=== PATIENT | male | born 1955 | race Hispanic/Latino ===

== ENCOUNTER 2024-12-13 10:02 | Observation (INO) | payer OTHER ==
[2024-12-11 12:10] LABS: IMMATURE GRANULOCYTE ABSOLUTE 0.03 K/uL (0-1); NUCLEATED RED BLOOD CELLS 0.0 % (0.0-0.19); PLATELET COUNT (AUTO) 240 K/uL (130-400); RED BLOOD CELL COUNT(AUTO) 4.22 MIL/uL (4.50-6.20); RED CELL DISTRIBUTION WIDTH 13.8 % (11.0-15.5); WHITE BLOOD COUNT (AUTO) 7.5 K/uL (4.8-10.8)
[2024-12-11 12:18] LABS: INR 1.06 (0.85-1.15)
[2024-12-11 12:21] LABS: CREATININE 0.7 mg/dL (0.5-1.3); GLOMERULAR FILTR. RATE CALC 99.0 mL/min (>90); GLUCOSE,RANDOM 88.0 mg/dL (70-105); SODIUM SERUM 136.0 mmol/L (136-145); UREA NITROGEN, BLOOD 17.0 mg/dL (7-18)
[2024-12-11 12:28] VITALS: BP 128/81; PULSE 76; RESP 18; TEMP 97.7
--- NOTE | 2024-12-11 12:50 | EKG ---
[facility] Test Date: 2024-12-11 Test Time: 11:55:13 Pat Name: TAWNYA VALLE Department: [facility] Room: Gender: M Outcomes Analyst: [id number] : 1955 Requested By: ALBERTA HAYES Order Number: [id number] Reading MD: Alberta Montoya Measurements Intervals [place] Rate: 67 P: 61 LA: 180 QRS: -8 QRSD: 99 T: 35 QT: 380 QTc: 402 Interpretive Statements Sinus rhythm No previous ECG available for comparison Electronically Signed On 12-11-2024 18:06:56 CDT by Alberta Montoya Please click the below link to view image of tracing.
[2024-12-13] VITALS (24 sets, daily range): BP systolic 130–150; BP diastolic 58–90; PULSE 70–100; RESP 14–20; TEMP 97.2–97.8; O2SAT 94
[~2024-12-13] VITALS: Ht 180.3 cm; Wt 80.3 kg
[2024-12-13] MEDS: LACTATED RINGERS 1000ML 1,000 ML IV ONE (09:40)
[~2024-12-13 10:02] MED LIST: ALEN70TA80 PO; BUDE10.7 IH; CYAN-35 PO; HYDR-4068 PO; PANT40TA54 PO; PREG25CA19 PO; TAMS-55 PO
[2024-12-13] MEDS ORDERED: LIDOCAINE HCL MPF 1% 5ML VIAL ONE (10:57)
[2024-12-13] MEDS ORDERED: GLYCOPYRROLATE 0.2 MG/ML 5 ML VIAL ONE (10:57)
[2024-12-13] MEDS ORDERED: MIDAZOLAM HCL 1 MG/ML 2ML VIAL ONE (10:58)
[2024-12-13] MEDS ORDERED: NEOSTIGMINE METHYLSULFATE 1MG/ML IV ONE (10:58)
[2024-12-13] MEDS ORDERED: PROMETHAZINE HCL 25 MG/ML 1ML AMPULE IM PRN (11:00)
[2024-12-13] MEDS ORDERED: APIX2.5T PO (11:26)
[2024-12-13] MEDS: SUGAMMADEX SODIUM 200 MG/2 ML VIAL IV ONE (12:38)
--- NOTE | 2024-12-13 12:49 | OP ---
Operative Note: DATE OF PROCEDURE: 12/13/24 SURGEON: ALBERTA HAYES MD POWER TOOL REPAIR TECHNICIAN: Washington Hayes MD p.a. C ANESTHESIA: General and local ANESTHESIOLOGIST/REGULATORY AFFAIRS INTERN: [facility] anesthesia team PREOPERATIVE DIAGNOSIS: Symptomatic paraesophageal hiatal hernia with the incarcerated proximal stomach POSTOPERATIVE DIAGNOSIS: As above SYNOPSIS: Hiatal hernia repair with mesh reinforcement and partial anterior fundoplication performed without immediate complication PROCEDURE: 1. Robotic assisted paraesophageal hiatal hernia repair with mesh reinforcement 2. Partial anterior Nikhil style fundoplication 3. EGD ESTIMATED BLOOD LOSS: Minimal, less than 30 cc INDICATIONS: As above DESCRIPTION OF PROCEDURE: After standard precautions and preparations were undertaken a Veress needle and optical trocar were used to enter the abdominal cavity. All other instruments were placed under direct vision. The robotic system was docked in the standard fashion. We began our dissection by opening pars flaccida identifying the right forrest of the diaphragm. From there we are able to enter into the mediastinum to enter the avascular plane. We carried this dissection circumferentially to free up the entire proximal stomach which was incarcerated in the paraesophageal hernia sac. After dissection was complete the GE junction was resting well below the hiatus without any tension. This was verified by use of the EGD scope. We began suturing the right and left crura back in reapproximation starting at the crossing fibers in the retroesophageal space. We worked our way upwards towards the posterior esophageal wall. Care was taken not to over tighten. We reinforced this with a mesh overlay. The mesh was cut in a horseshoe fashion and sutured in place. Due to the patient's esophageal dysmotility we had concerns about a full circumferential fundoplication. We mobilize the fundus and performed a partial anterior fundoplication. We 1st sutured the angle of his back to an acute angle to aid in anti-reflux physiology. Then we pulled the loose anterior fundus over the distal esophagus and GE junction for to create an anterior partial fundoplication. We sutured this in place. The EGD was used to verify the anatomy and all the anatomy was appropriate. All instrument counts were verified as correct prior to ending the case including needles and sponges. The patient was hemostatic. ALBERTA HAYES MD Dec 13, 2024 12:48
[2024-12-13] MEDS ORDERED: PROCHLORPERAZINE 10MG/2ML INJ IV PRN (13:00)
--- NOTE | 2024-12-13 13:03 | PN ---
GENERAL SURGERY PROGRESS NOTE Date/Time Patient Seen: [12/13/2024 at 1:00 p.m. ] Problem List: [ ] Interval History: [Postop day 0. Pain tolerable with PRN medication. ] Current Medications Medications (Trade) Dose Ordered Sig/Ab Route Start Time Stop Time Status Last Admin Dose Admin Enoxaparin Sodium (Lovenox) 30 mg Q12H SQ 12/13/24 13:00 01/12/25 12:59 UNV Famotidine (Pepcid 20mg Vial) 20 mg BID IV 12/13/24 21:00 01/12/25 20:59 UNV Lactated Ringer's 1,000 ml @ 150 mls/hr Q6H40M IV 12/13/24 13:00 01/12/25 12:59 UNV Physical Examination: GENERAL: [No acute distress.] ABD: [Incisions clean, dry and intact, Dermabond in place Vital Signs (last 8hr) Date Time Temp Pulse Resp B/P (MAP) Pulse Ox O2 Delivery O2 Flow Rate FiO2 12/13/24 12:45 97.3 92 15 146/68 96 Nonrebreathing Mask 10.0 100 12/13/24 10:20 97.5 70 14 131/76 97 Room Air 21 Laboratory: [ ] Diagnostics / Radiology: [Copy/Paste Echos/Imaging Report here] Impression and Plan: [ Plan is for discharge home in the next day or two as long as patient tolerating p.o., ambulatory and pain under control. Discussed with patient and family. They understand and agree.] HERMINIA HAYES PAC Dec 13, 2024 13:03
--- NOTE | 2024-12-13 14:50 | NUR ---
PT arrived on unit via stretcher. A&Ox4 able to make needs known resp =& unlabored bilat. abdomen soft, tender and round, hypoactive bowel sounds x4 quads. educated pt on safety and hospital environment. PT verbally acknowledged understanding. Bed @ lowest position call light in reach.
[2024-12-13] MEDS: FAMOTIDINE 20MG VIAL IV SCH (19:42)
[2024-12-13] MEDS: HYDROcod/acetaMINOPHEN 7.5/325 MG 15 ML UDCUP PO PRN (19:45)
[2024-12-14] MEDS: ENOXAPARIN SODIUM 30 MG/0.3 ML SQ SCH (03:36)
[2024-12-14 03:44] VITALS: BP 138/74; PULSE 66; RESP 20; TEMP 98.7
[2024-12-14] MEDS: LACTATED RINGERS 1000ML 1,000 ML IV SCH (06:45)
[2024-12-14 08:12] VITALS: BP 150/78; PULSE 66; RESP 18; TEMP 97.5
[2024-12-14 08:30] VITALS: O2SAT 94
--- NOTE | 2024-12-14 10:09 | PN ---
GENERAL SURGERY PROGRESS NOTE Date/Time Patient Seen: [ ] Problem List: [Symptomatic Paraesophageal hiatal hernia with incarcerated proximal stomach Hyperlipidemia GERD, BPH, gastritis, PAD COPD ] Interval History: 69-year-old male patient with past medical history for PID, COPD, GERD, BPH, hyperlipidemia, gastritis, and symptomatic paraesophageal hiatal hernia with incarcerated proximal stomach who underwent a robotic assisted paraesophageal hiatal hernia repair with mesh reinforcement, partial anterior Nikhil style fundoplication, and EGD. His vital signs are stable. Patient has tolerated clear fluids without any nausea or vomiting. Patient is voiding well without difficulties. Patient has had a bowel movement.] Current Medications Medications (Trade) Dose Ordered Sig/Ab Route Start Time Stop Time Status Last Admin Dose Admin Enoxaparin Sodium (Lovenox) 30 mg Q12H SQ 12/13/24 13:00 01/12/25 12:59 12/14/24 03:36 30 MG Famotidine (Pepcid 20mg Vial) 20 mg BID IV 12/13/24 21:00 01/12/25 20:59 12/14/24 08:38 20 MG Lactated Ringer's 1,000 ml @ 150 mls/hr Q6H40M IV 12/13/24 13:00 01/12/25 12:59 12/14/24 06:45 150 MLS/HR Physical Examination: GENERAL: [No acute distress.] HEAD: [Normal with no signs of head trauma.] EYES: [PERRLA, EOMI, conjunctiva and sclera normal.] ENT: [Hearing grossly intact, normal oropharynx.] NECK: [Supple without JVD. There is no tenderness, lymphadenopathy, or masses. No thyromegaly. Normal carotid upstrokes without bruits.] LUNGS: [Clear breath sounds bilaterally. There are right basilar rales one third of the way up the chest. No wheezes, or rhonchi.] HEART: [Normal rate and rhythm. Normal S1 and S2 without mumurs, gallop or rub.] VASC: [Peripheral pulses +2 bilaterally.] ABD: [Bowel sounds normal, soft, nontender, no masses, no organomegaly. No audible bruits.] : [Not examined] LYMPH: [No lymphadenopathy noted.] EXT: [No clubbing, cyanosis or edema.] SKIN: [No rashes or lesions noted.] NEURO: [Awake, alert, and oriented x3. No focal sensory or strength deficits noted.] Vital Signs (last 8hr) Date Time Temp Pulse Resp B/P (MAP) Pulse Ox O2 Delivery O2 Flow Rate FiO2 12/14/24 08:30 94 Room Air* 0 21 12/14/24 08:12 97.5 66 18 150/78 94 Room Air 12/14/24 03:44 98.8 66 20 138/74 97 Nasal Cannula 2.0 Laboratory: [ ] Diagnostics / Radiology: [Copy/Paste Echos/Imaging Report here] Impression and Plan: [Paraesophageal hiatal hernia with incarcerated proximal stomach GERD Hyperlipidemia Gastritis PAD COPD Plan Clear liquid diet Encourage ambulation Encourage IS exercises Pain meds as needed Antiemetics p.r.n. Disposition in the next hours 24 hours Please call with questions, concerns, and change in clinical status] ALFREDO BUTLER PLATE CUTTER Dec 14, 2024 10:09
--- NOTE | 2024-12-14 11:08 | DS ---
Discharge Summary Assessment Problem List: [Symptomatic Paraesophageal hiatal hernia with incarcerated proximal stomach Hyperlipidemia GERD, BPH, gastritis, PAD COPD ] Hospital Course Interval History: 69-year-old male patient with past medical history for PID, COPD, GERD, BPH, hyperlipidemia, gastritis, and symptomatic paraesophageal hiatal hernia with incarcerated proximal stomach who underwent a robotic assisted paraesophageal hiatal hernia repair with mesh reinforcement, partial anterior Nikhil style fundoplication, and EGD. His vital signs are stable. Patient has tolerated clear fluids without any nausea or vomiting. BBS are clear. Abdomen is soft and nondistended. No pain reported. Pain pump noted to right side of lower abdomen. Incisions are dry and intact open to air with dermabond. Active bs are present. Patient is voiding well without difficulties. Home care instructions given with ER warnings. Instructed patient to f/u at [facility] on 12/20/24. Patient verbalized understanding and agreement. ] ALFREDO BUTLER Dec 14, 2024 11:08
[2024-12-14 11:46] VITALS: BP 116/74; PULSE 60; RESP 18; TEMP 97.9
--- NOTE | 2024-12-14 13:41 | NUR ---
DCP:HOME Pt currently lives at home with his Antonieta Villar [phone]. Pt does have a walker, nebulizer, and O2 at home. pt states that his O2 is serviced by [facility] [place] [facility] however states that he rarely uses it. Pt does not have any provider or home health services. PCP is Dr. Tru Garnica and [facility] for any RX needs. At [place] pt will want to go home and family can assist with transportation. Addendum: 12/14/24 at 1346 by CECILIA CORDON SS Amended: Links added.
[2024-12-14 16:00] VITALS: BP 141/64; PULSE 62; RESP 20; TEMP 97.5
--- NOTE | 2024-12-14 16:03 | NUR ---
PATIENT DISCHARGE DISCHARGE CONFIRMED WITH CANDACE BUTLER. OK TO D/C PATIENT TO HOME. PATIENT DISCHARGED TO HOME. PERIPHERAL IV REMOVED CATHETER INTACT. DISCHARGE INSTRUCTIONS GIVEN. PATIENT AWARE TO F/U WITH [facility] 12/20. NO NEW PRESCRIPTIONS. ALL QUESTIONS ANSWERED. INCISIONS CLEAN DRY AND INTACT. PATIENT REPORTS NO PAIN. ALL BELONGINGS SENT WITH PATIENT. PATIENT TAKEN DOWN BY WHEELCHAIR.
== END 2024-12-14 16:20 | disposition home or self-care (01) ==
LOC: DAH 10:02 → DAHIP 10:03 → INTOOBSV 10:03 → DAH 10:03 → 4CH 14:53
PROVIDERS: ADMIT Surgery; ATTEND Surgery
DX: K44.9 Diaphragmatic hernia without obstruction or gangrene (principal); E78.5 Hyperlipidemia, unspecified; K21.9 Gastro-esophageal reflux disease without esophagitis; K22.4 Dyskinesia of esophagus; K29.70 Gastritis, unspecified, without bleeding; N40.0 Benign prostatic hyperplasia without lower urinary tract symptoms; J44.9 Chronic obstructive pulmonary disease, unspecified; Z79.899 Other long term (current) drug therapy; Z98.890 Other specified postprocedural states
CPT/HCPCS: 80048; 85025; 85610; 85730; 86850; 86900; 86901; 36415; 93005; 43282; 96374; 96375; 97161; 97116 ×2; 97530 ×2; 96376; 96372; A6260; A4663; A4215 ×2; J7120; J1308 ×2; J3010 ×3; J0665 ×2; J3490 ×5; J2250; J2704; J2405; J1885; J2710; J1100; J1171; J0690 ×2; C1781; A4930; A4223 ×2; A4213; A4222; A4221; A4216; G0378 ×4; J1650 ×2; 43235